=== PATIENT | male | born 1970 | race Caucasian/White ===

== ENCOUNTER → 2018-04-22 | Outpatient (CLI) | payer BC ==
--- NOTE | ~2018-04-22 | EXE ---
[facility] [employer] [place] [address] STRESS ECHOCARDIOGRAM Name: RACHNA LAU III Room #: REG [facility]#: [id number] Admission: 04/22/18 Attend Phys: Cabrera Romano MD Discharge: Date of : 66 Date of Service: 04/22/18 1511 Report #: [id number] THIS REPORT FOR: //name// APPROVED REPORT Study performed: 04/22/2018 14:01:45 Exam: Stress Echocardiogram Indication: Dyspnea on exertion Patient Location: Out-Patient Stress Nurse: Yue Kc RN, Sujey Zhong RN Status: routine Ht: 5 ft 7 in HR: 79 bpm BP: 198/92 mmHg Medical History Medications: Patient was unsure of BP med Allergies: No known drug allergies Cardiac Risk Factors: HTN, Hyperlipidemia Procedure The patient underwent an Exercise Stress Test using the Elías Protocol. Blood pressure, heart rate, and EKG were monitored. An Echocardiogram was performed by biology specimen technician in four stages in quad fashion. At peak stress, four selected images were obtained and placed side by side with resting images for comparison. Stress Test Details Stress Test: Exercise stress testing was performed using a Elías protocol. HR Resting HR: 79 bpm Max Heart Rate (APMHR): 171 bpm Max HR Achieved: 173 bpm Target HR (85% APMHR): 145 bpm % of APMHR: 101 Recovery HR: 100 bpm HR response to stress: Normal HR response to stress BP Resting BP: 138/92 mmHg Max BP: 164/94 mmHg Recovery BP: 140/92 mmHg BP response to stress: Normal blood pressure response to stress. ECG [facility] [address] [place] [address] STRESS ECHOCARDIOGRAM Name: RACHNA LAU III Room #: REG [facility]#: [id number] Admission: 04/22/18 Attend Phys: Cabrera Romano MD Discharge: Date of : 66 Date of Service: 04/22/18 1511 Report #: [id number] Resting ECG: Sinus Rhythm Stress ECG: Sinus Rhythm, nonspecific ST-T abnormalities ST Change: Non-ischemic Clinical Reason for Termination: Completed protocol, moderate fatigue Exercise duration: 10 min 13 sec Highest Stage Achieved: Stage 4: 4.2 mph at 16% grade. Exercise capacity: 13.40 METs Pre-Stress Echo The resting Echocardiogram showed normal left ventricular contractility with an estimated Ejection Fraction of about 55-60%. Normal wall motion in all segments on baseline images. Post-Stress Echo The stress Echocardiogram showed normal left ventricular contractility with an estimated Ejection Fraction of about 65-70%. Normal augmentation of wall motion in all segments on post stress images. Clinical Normal augmentation of myocardial wall segments using a 17 segment model. No clinical or ECG evidence for ischemia. Conclusion Clinical Response: Non-ischemic Exercise Capacity: Above average Stress ECG Response: Non-ischemic Stress Echo Images: Non-ischemic The left ventricle is normal in size and wall thickness in both the rest and stress images. Other Information Study Quality: Good <Conclusion> The left ventricle is normal in size and wall thickness in both the rest and stress images. <ELECTRONICALLY SIGNED> By: Cabrera Romano MD 04/22/181510 10 10 Cabrera Romano MD /INF
--- NOTE | ~2018-04-22 | 2DMMODE ---
[facility] [place] [address] 2 D/M-MODE ECHOCARDIOGRAM Name: RACHNA LAU III Room #: REG [facility]#: [id number] Admission: 04/22/18 Attend Phys: Cabrera Romano MD Discharge: Date of : 66 Date of Service: 04/22/18 1440 Report #: [id number] THIS REPORT FOR: //name// APPROVED REPORT Study performed: 04/22/2018 13:37:26 EXAM: Comprehensive 2D, Doppler, and color-flow Echocardiogram Patient Location: Out-Patient Status: routine BSA: 1.91 HR: 73 bpm BP: 138/92 mmHg Rhythm: NSR Other Information Study Quality: Good Indications Dyspnea on exertion. Hx: family history bicuspid AoV 2D Dimensions RVDd: 32.04 mm IVSd: 10.55 (7-11mm) LVOT Diam: 21.06 (18-24mm) LVDd: 48.31 mm PWd: 10.34 (7-11mm) Ascending Ao: 35.64 (22-36mm) LVDs: 31.03 (25-40mm) Aortic Root: 40.29 mm Volumes Left Atrial Volume (Systole) Single Plane 4CH: 41.39 mL Single Plane 2CH: 45.29 mL LA ESV Index: 24.00 mL/m2 Aortic Valve AoV Peak Boni.: 0.96 m/s AO Peak Gr.: 3.66 mmHg LVOT Max P.93 mmHg LVOT Max V: 0.69 m/s POOJA Vmax: 2.53 cm2 Mitral Valve E/A Ratio: 0.8 MV Decel. Time: 187.81 ms MV E Max Boni.: 0.61 m/s [facility] [address] [place] [address] 2 D/M-MODE ECHOCARDIOGRAM Name: JUDIRACHNA Arnett [facility] Room #: [facility]#: [id number] Admission: 04/22/18 Attend Phys: Cabrera Romano MD Discharge: Date of : 66 Date of Service: 04/22/18 1440 Report #: [id number] A Boni.: 0.77 m/s MV PHT: 54.47 ms IVRT: 86.51 ms Pulmonary Valve PV Peak Boni.: 0.79 m/s PV Peak Gr.: 2.50 mmHg Pulmonary Vein P Vein S: 0.62 m/s P Vein D: 0.28 m/s P Vein S/D Ratio: 2.21 Tricuspid Valve TR Peak Boni.: 2.07 m/s RAP Estimate: 5.00 mmHg TR Peak Gr.: 17.12 mmHg PA Pressure: 22.00 mmHg Left Ventricle The left ventricle is normal size. There is normal LV segmental wall motion. Borderline concentric left ventricular hypertrophy. Left ventricular systolic function is normal. LVEF is 55-60%. Mild diastolic dysfunction is present (impaired relaxation pattern). Right Ventricle The right ventricle is normal size. The right ventricular systolic function is normal. Atria The left atrium size is normal. The right atrium size is normal. Aortic Valve Aortic valve is trileaflet. No aortic regurgitation is present. There is no aortic valvular stenosis. Mitral Valve The mitral valve is normal in structure. There is no mitral valve regurgitation noted. No evidence of mitral valve stenosis. Tricuspid Valve The tricuspid valve is normal in structure. Trace to mild tricuspid regurgitation. Estimated PAP is 20-25mmHg. Pulmonic Valve The pulmonary valve is normal in structure. Mild pulmonic [facility] [address] [place] [address] 2 D/M-MODE ECHOCARDIOGRAM Name: RACHNA LAU [facility] Room #: [facility]#: [id number] Admission: 04/22/18 Attend Phys: Cabrera Romano MD Discharge: Date of : 66 Date of Service: 04/22/18 1440 Report #: [id number] regurgitation. Great Vessels Aortic root is mildly dilated at the level of the sinuses. The ascending aorta is normal in size. IVC is normal in size and collapses >50% with inspiration. Pericardium There is no pericardial effusion. <Conclusion> The left ventricle is normal size. Borderline concentric left ventricular hypertrophy. Left ventricular systolic function is normal. Mild diastolic dysfunction is present (impaired relaxation pattern). The right ventricle is normal size. The left atrium size is normal. Aortic valve is trileaflet. The mitral valve is normal in structure. Trace to mild tricuspid regurgitation. Estimated PAP is 20-25mmHg. <ELECTRONICALLY SIGNED> By: Cabrera Romano MD 04/22/18 1440 [id number] Cabrera Romano MD /INF
== END ==
LOC: CV 11:21
DX: I51.7 Cardiomegaly (principal); R06.02 Shortness of breath